=== PATIENT | female | born 1985 | race African-American/Black ===

== ENCOUNTER 2018-10-17 23:05 | Outpatient (CLI) | payer MEDICAID ==
[2018-10-17 23:59] LABS: APPEARANCE,URINE CLOUDY; BILIRUBIN,URINE NEGATIVE (NEGATIVE); COLOR,URINE YELLOW; GLUCOSE, URINE NEGATIVE (NEGATIVE); KETONES,URINE NEGATIVE (NEGATIVE); LEUKOCYTE ESTERASE,URINE NEGATIVE (NEGATIVE); NITRITE,URINE NEGATIVE (NEGATIVE); PROTEIN,URINE NEGATIVE (NEGATIVE); URINE SPECIFIC GRAVITY 1.018; UROBILINOGEN,URINE NEGATIVE mg/dL (<2.0)
[2018-10-18 00:11] LABS: URINE AMPHETAMINES SCREEN NEGATIVE; URINE BARBITURATES SCREEN NEGATIVE; URINE BENZODIAZEPINES SCREEN NEGATIVE; URINE COCAINE SCREEN NEGATIVE; URINE MARIJUANA (THC) SCREEN NEGATIVE; URINE METHADONE SCREEN NEGATIVE; URINE PHENCYCLIDINE SCREEN NEGATIVE
== END 2018-10-18 00:41 | disposition home or self-care (01) ==
LOC: LC 23:05
PROVIDERS: ATTEND Obstetrics & Gynecology Gynecology
DX: O36.8390 Maternal care for abnormalities of the fetal heart rate or rhythm, unspecified trimester, not applicable or unspecified (principal); Z87.891 Personal history of nicotine dependence
CPT/HCPCS: 80307; 81001

== ENCOUNTER 2019-01-04 00:19 | Outpatient (CLI) | payer MEDICAID ==
[2019-01-04 01:09] LABS: APPEARANCE,URINE CLOUDY; BILIRUBIN,URINE NEGATIVE (NEGATIVE); COLOR,URINE YELLOW; GLUCOSE, URINE NEGATIVE (NEGATIVE); KETONES,URINE NEGATIVE (NEGATIVE); LEUKOCYTE ESTERASE,URINE NEGATIVE (NEGATIVE); NITRITE,URINE NEGATIVE (NEGATIVE); PROTEIN,URINE 30 mg/dL (NEGATIVE); URINE SPECIFIC GRAVITY 1.029; UROBILINOGEN,URINE NEGATIVE mg/dL (<2.0)
[2019-01-04 01:32] LABS: URINE AMPHETAMINES SCREEN NEGATIVE; URINE BARBITURATES SCREEN NEGATIVE; URINE BENZODIAZEPINES SCREEN NEGATIVE; URINE COCAINE SCREEN NEGATIVE; URINE MARIJUANA (THC) SCREEN NEGATIVE; URINE METHADONE SCREEN NEGATIVE; URINE PHENCYCLIDINE SCREEN NEGATIVE
[2019-01-04] MEDS ORDERED: RINGERS SOLUTION,LACTATED 1,000 ML IV PRN (01:51)
--- NOTE | 2019-01-04 03:51 | Non Stress Test Report ---
Non Stress Test Datetime Report Generated by CPN: 01/04/2019 03:50 DEMOGRAPHIC EGA NST: 39.3 INDICATION Indication for Study: Ordered by Provider Indication for Study (NST) Other: LC URINE RESULTS Urine Protein, NST: Negative Urine Ketones - NST: Negative Urine Glucose - NST: Negative Urine Blood - NST: Positive MONITORING Monitor Explained: Monitor Explained; Test Explained; Patient Verbalized Understanding Time on Monitor: 01/04/2019 02:30 Time off Monitor: 01/04/2019 03:22 NST Duration: 52 NST INTERVENTIONS NST Interventions: PO Hydration; IV Fluids Physician Notified NST: Toribio BABY A: [id number] BABY A Movement : Present Contraction Frequency : 3-10 FHR Baseline : 135 Accelerations : 15X15 Decelerations : None Variability : Moderate 6-25bpm NST Review: Meets Criteria for Reactive NST NST Review and Verified By : Michele Whitaker RN NST Results: Reactive NST REPORT Report Trigger: Send Report
== END 2019-01-04 03:22 | disposition home or self-care (01) ==
LOC: LC 00:19
PROVIDERS: ATTEND Obstetrics & Gynecology
PROC: 4A1HXCZ Monitoring of Products of Conception, Cardiac Rate, External Approach (ICD-10-PCS; principal; 2019-01-04)
DX: O47.1 False labor at or after 37 completed weeks of gestation (principal); Z3A.39 39 weeks gestation of pregnancy
CPT/HCPCS: 59025; 80307; 81005; 84112

== ENCOUNTER 2019-01-14 06:33 | Inpatient (IN) | payer MEDICAID ==
[2019-01-14] MEDS ORDERED: PENICILLIN G-K 5 MILLION UNIT VIAL ONE ×3 (07:16→15:27)
[2019-01-14] MEDS ORDERED: OXYTOCIN/NORMAL SALINE 20 UNIT/1,000 ML RTUINJ ONE (07:16)
[2019-01-14] MEDS ORDERED: OXYTOCIN 10 UNIT/ML VIAL ONE (07:16)
[2019-01-14] MEDS ORDERED: LIDOCAINE 1% INJ-PF (10 MG/ML) 30 ML SDV ONE (07:16)
[2019-01-14] MEDS ORDERED: MISOPROSTOL 0.2 MG TABLET ONE (07:16)
[2019-01-14] MEDS ORDERED: RINGERS SOLUTION,LACTATED 300 ML IV ONE (07:25)
[2019-01-14] MEDS ORDERED: OXYTOCIN/NORMAL SALINE 20 UNIT/1,000 ML RTUINJ IV PRN ×2 (07:25→16:06)
[2019-01-14] MEDS ORDERED: PENICILLIN G POTASSIUM 5,000,000 UNIT in DEXTROSE 5%-WATER 100 ML IV ONE (07:30)
[2019-01-14 07:41] LABS: APPEARANCE,URINE CLEAR; BILIRUBIN,URINE NEGATIVE (NEGATIVE); COLOR,URINE YELLOW; GLUCOSE, URINE NEGATIVE (NEGATIVE); KETONES,URINE NEGATIVE (NEGATIVE); LEUKOCYTE ESTERASE,URINE NEGATIVE (NEGATIVE); NITRITE,URINE NEGATIVE (NEGATIVE); PROTEIN,URINE NEGATIVE (NEGATIVE); URINE SPECIFIC GRAVITY 1.018; UROBILINOGEN,URINE NEGATIVE mg/dL (<2.0)
[2019-01-14] MEDS: RINGERS SOLUTION,LACTATED 1,000 ML IV PRN ×2 (08:00→12:32)
[2019-01-14 08:02] LABS: ABSOLUTE BASOPHILS # (AUTO) 0.1 10^3/uL (0.0-0.2); ABSOLUTE EOSINOPHILS # (AUTO) 0.1 10^3/uL (0.0-0.6); ABSOLUTE LYMPHOCYTES (AUTO) 1.5 10^3/uL (0.5-4.7); ABSOLUTE MONOCYTES (AUTO) 0.5 10^3/uL (0.1-1.4); EOSINOPHILS % (AUTO) 1.2 % (0-6); HEMATOCRIT 32.6 % (36.0-47.0); HEMOGLOBIN 10.7 g/dL (12.0-15.5); MEAN CORPUSCULAR HEMOGLOBIN 25.7 pg (27.0-33.4); MEAN CORPUSCULAR HGB CONC 32.7 g/dL (32.0-36.0); MEAN CORPUSCULAR VOLUME 79 fl (80-97); MONOCYTES % (AUTO) 8.2 % (3-13); PLATELET COUNT 343 10^3/uL (150-450); RED BLOOD COUNT 4.15 10^6/uL (3.72-5.28); RED CELL DISTRIBUTION WIDTH 16.8 % (11.5-14.0); SEGMENTED NEUTROPHILS % (AUTO) 64.6 % (42-78); TOTAL CELLS COUNTED % (AUTO) 100 %; WHITE BLOOD COUNT 6.2 10^3/uL (4.0-10.5)
[2019-01-14 08:08] LABS: URINE AMPHETAMINES SCREEN NEGATIVE; URINE BARBITURATES SCREEN NEGATIVE; URINE BENZODIAZEPINES SCREEN NEGATIVE; URINE COCAINE SCREEN NEGATIVE; URINE MARIJUANA (THC) SCREEN NEGATIVE; URINE METHADONE SCREEN NEGATIVE; URINE PHENCYCLIDINE SCREEN NEGATIVE
[2019-01-14] MEDS ORDERED: CITRIC ACID/SODIUM CITRATE ORAL SOLN 15 ML UDCUP ONE (09:34)
[2019-01-14] MEDS ORDERED: CITRIC ACID/SODIUM CITRATE ORAL SOLN 15 ML UDCUP PO PRN (09:34)
--- NOTE | 2019-01-14 09:42 | Admission Physical ---
Datetime Report Generated by CPN: 01/14/2019 09:42 CURRENT ADMISSION Chief Complaint: Scheduled Induction of Labor Indication for Induction: Post Dates Admit Impression : Term, Intrauterine Admit Plan: Admit to Unit; Initiate Labor Induction Protocol ALLERGIES Medication Allergies: No Medication Allergies: No Known Allergies (01/04/2019) Latex: No Latex Allergies Food Allergies: No known allergies Environmental Allergies: Elm trees, bermuda grass OBSTETRICAL HISTORY EDC: 01/08/2019 00:00 : 6 Para: 3 SAB: 2 Livin Cesareans: 0 Gestational Diabetes: No Rh Sensitization: No Incompetent Cervix: No KALEIGH: No Infertility: No ART Treatment: No Uterine Anomaly: No IUGR: No Hx Previous C/S: No Macrosomia: No Hx Loss/Stillborn: No PIH: No Hx : No Placenta Previa/Abruption: No Depression/PP Depression: Yes PTL/PROM: No Post Hemorrhage: No Obstetrical History Comments: G1 07/2004 @ 41 weeks, Baby girl 8lbs 0oz, epidural G2 - 04/2006 SAB @ 7 weeks G3 - 07/2009 @ 41 weeks, Baby boy 7lbs 8oz, epidural G4 - 02/2011 SAB @ 7 weeks G5 - 12/2015 5lbs 10oz, Baby girl, epidural G6 - Current SEE RECORDS Alcohol: No Marijuana : No Cocaine: No Other Illicit Drugs: No Cigarettes: Former Smoker. [id number] MEDICAL HISTORY Diabetes: No Blood Transfusion: No Pulmonary Disease (Asthma, TB): No Breast Disease: No Hypertension: No Procurement Internship Surgery: No Heart Disease: No Hosp/Surgery: Yes Autoimmune Disorder: No Anesthetic Complications: No Kidney Disease: No Abnormal Pap Smear: Yes Neuro/Epilepsy: No Psychiatric Disorders: No Other Medical Diseases: No Hepatitis/Liver Disease: No Significant Family History: No Varicosities/Phlebitis: No Trauma/Violence : No Thyroid Dysfunction: No Medical History Comments: Chlamydia - 06/09/15, 06/18/15, childbirth, abd pap 2010, obesity, vitamin D deficiency INFECTIOUS HISTORY Gonorrhea: No Genital Herpes: No Chlamydia: Yes Tuberculosis: No Syphilis: No Hepatitis: No HIV/AIDS Exposure: No Rash or Viral Illness: No HPV: No PHYSICAL EXAM General: Normal HEENT: Normal Neurologic: Normal Thyroid: Deferred Heart: Normal Lungs: Normal Breast: Deferred Back: Normal Abdomen: Normal Genitourinary Exam: Normal Extremities: Normal DTRs: Deferred Pelvic Type: Adequate Physical Exam Comments: pelvis proven to 8#3 Vital Signs: Reviewed; Within Normal Limits VAGINAL EXAM Dilatation: 3 Effacement: 50 Station: -2 Contraction Comments: irreg MEMBRANES Membranes: Ruptured Amniotic Fluid Color: Clear FETUS A EGA: 40.6 Monitoring: External US FHR- Baseline: 145 Variability: Moderate 6-25bpm Accelerations: 15X15 Decelerations: None Estimated Weight (gm): 3600 Presentation: Vertex Presentation- Other: by SVE Admit Comment: at 40w6d by 17w sono. complications: late to care, obesity, GBS pos. P: comgt with dr johnson. AROM at 0930 for clear fluid, pitocin infusing, GBS prophylaxis with penicillin, anticipate PLANS FOR LABOR AND DELIVERY Labor and Delivery: None Pain Management: Epidural Feeding Preference: Formula Benefit of Breast Feed Discussed: Yes Circumcision: Yes INFORMED CONSENT Assignment: Kody Johnson MD Signature: with User ID: [email or web address] : with User ID: [email or web address]
[2019-01-14] MEDS ORDERED: EPHEDRINE SULFATE INJ 50 MG/1 ML AMPULE ONE (12:18)
[2019-01-14] MEDS ORDERED: FENTANYL/BUPIVACAINE/NS/PF 300 MCG/150 ML RTUINJ EPI ONE (12:19)
[2019-01-14] MEDS ORDERED: BUPIVACAINE HCL 0.25 % INJ/PF (2.5 MG/1 ML) 30 ML VIAL ONE (12:19)
[2019-01-14] MEDS ORDERED: LIDOCAINE 2% INJ-PF (20 MG/ML) 10 ML AMPUL ONE (15:23)
[2019-01-14] MEDS: PENICILLIN G POTASSIUM 2,500,000 UNIT in DEXTROSE 5%-WATER 50 ML IV SCH ×3 (15:32→21:02)
[2019-01-14] MEDS ORDERED: ACETAMINOPHEN 650 MG SUPP.RECT PR PRN (16:06)
[2019-01-14] MEDS ORDERED: PROMETHAZINE HCL 25 MG SUPP.RECT PR PRN (16:06)
[2019-01-14] MEDS ORDERED: BENZOCAINE/MENTHOL AEROSOL SPRAY 56 ML TOP PRN (16:06)
[2019-01-14] MEDS ORDERED: DIBUCAINE 1% OINTMENT 56 GM TP PRN (16:06)
[2019-01-14] MEDS ORDERED: GLYCERIN/WITCH HAZEL LEAF 1 EACH MED..WIPE TP PRN (16:06)
[2019-01-14] MEDS ORDERED: PROMETHAZINE HCL 25 MG TABLET PO PRN (16:06)
[2019-01-14] MEDS ORDERED: DIPH/PERTUSS(ACELL)/TETANUS VAC/PF 0.5 ML SYR (>=10YO) IM PRN (16:06)
[2019-01-14] MEDS ORDERED: ZOLPIDEM TARTRATE 5 MG TABLET PO PRN (16:06)
[2019-01-14] MEDS ORDERED: MAGNESIUM HYDROXIDE SUSP 30 ML UDCUP PO PRN (16:06)
[2019-01-14] MEDS ORDERED: PSEUDOEPHEDRINE HCL 30 MG TABLET PO PRN (16:06)
[2019-01-14] MEDS ORDERED: NA PHOS,M-B/NA PHOS,DI-BA (ADULT) 133 ML ENEMA PR PRN (16:06)
[2019-01-14] MEDS ORDERED: ACETAMINOPHEN WITH CODEINE #3 TABLET PO PRN ×2 (16:06)
[2019-01-14] MEDS ORDERED: MEASLES,MUMPS&RUBELLA VACC/PF 0.5 ML VIAL SUBCUT PRN (16:06)
[2019-01-14] MEDS ORDERED: PROMETHAZINE HCL INJ 25 MG/1 ML VIAL IV PRN (16:06)
[2019-01-14] MEDS ORDERED: DIPHENHYDRAMINE HCL 25 MG CAPSULE PO PRN (16:06)
[2019-01-14] MEDS ORDERED: IBUPROFEN 800 MG TABLET PO SCH (16:15)
--- NOTE | 2019-01-14 17:28 | Delivery Summary ---
Del Sum A-C Datetime Report Generated by CPN: 01/14/2019 17:28 DELIVERY PERSONNEL DELIVERY PERSONNEL: [id number] Delivery Doctor:: Sharon Schrader CNM Labor and Delivery Nurse:: Ailyn Pierce RNradio artist Nurse:: Jigna Buchanan RN Nursery Nurse:: Mis Ortega RN Nursery Nurse:: Maki Oconnor RN Perforator/SENIOR OFFICER: Yuliya Alford CNA II Perforator/SENIOR OFFICER: Yanet Orona, DIRECTOR OF OPERATIONS SUPPORT Additional Personnel: : Brayden GUARDADO, ST MATERNAL INFORMATION Delivery Anesthesia: Epidural Medications After Delivery: Pitocin Bolus-Please Comment Meds After Delivery Comment: Pitocin 20 units in L NS bolusing per order Delivery QBL: 100 Maternal Complications: None Provider Comments: ANASTASIA VIABLE MALE INFANT WITH SPONTANEOUS CRY. CORD DOUBLE CLAMPED AND CUT. SPONTANEOUS INTACT PLACENTA WITH 3VC. NO LACERATIONS. MOTHER AND STABLE IN L_D#4. (Annotations: Data stored by N on behalf of user) LABOR SUMMARY EDC: 01/08/2019 00:00 No. Babies in Womb: 1 Attempted: No Labor Anesthesia: Epidural LABOR INFORMATION Reason for Induction: Post Dates Onset of Labor: 01/14/2019 11:00 Complete Dilatation: 01/14/2019 15:46 Oxytocin: Induction Group B Beta Strep: positive Antibiotics # of Doses: 3 Antibiotics Time of Last Dose: 1531 Name of Antibiotic Given: PCN Steroids Given: None Reason Steroids Not Administered: Not Applicable MEMBRANES Membranes Rupture Method: Artificial Rupture of Membranes: 01/14/2019 09:30 Length of Rupture (hr): 6.33 Amniotic Fluid Color: Clear Amniotic Fluid Amount: Small Amniotic Fluid Odor: Normal STAGES OF LABOR Stage 1 hr: 4 Stage 1 min: 46 Stage 2 hr: 0 Stage 2 min: 4 Stage 3 hr: 0 Stage 3 min: 7 Total Time in Labor hr: 4 Total Time in Labor min: 57 VAGINAL DELIVERY Episiotomy: None Laceration #1: None Laceration Extension #1: N/A Laceration Repair: Not Applicable Sponge Count Correct: N/A Sharps Count Correct: N/A BABY A INFORMATION Delivery Date/Time: 01/14/2019 15:50 Method of Delivery: Vaginal Born in Route : No : N/A Forceps: N/A Vacuum Extraction: N/A Shoulder Dystocia : No PRESENTATION/POSITION BABY A Presentation: Cephalic Cephalic Presentation: Vertex Vertex Position: Right Occipital Anterior Breech Presentation: N/A PLACENTA INFORMATION BABY A Placenta Delivery Time : 01/14/2019 15:57 Placenta Method of Delivery: Spontaneous Placenta Status: Delivered SCORES BABY A Heart Rate 1 min: >100 bpm Resp Effort 1 min: Good Cry Reflex Irritability 1 min: Cough or Sneeze or Pulls Away Muscle Tone 1 min: Active Motion Color 1 min: Blue/Pale Resuscitation Effort 1 min: Tactile Stimulation SCORE 1 MIN: 8 Heart Rate 5 min: >100 bpm Resp Effort 5 min: Good Cry Reflex Irritability 5 min: Cough or Sneeze or Pulls Away Muscle Tone 5 min: Active Motion Color 5 min: Body Woden, Extremities Blue Resuscitation Effort 5 min: Tactile Stimulation SCORE 5 MIN: 9 INFORMATION BABY A Gestational Age at Delivery: 40.6 Gestational Status: Full Term- 39- 40.6 Weeks Infant Outcome : Liveborn Condition : Stable Sex: Male IDENTIFICATION BABY A Infant Verification Date/Time: 01/14/2019 16:03 ID Band Number: [id number] Mother's Name Verified: Yes RN Verifying : Izabella Pierce, RN, LCherelle Oconnor, RN WEIGHT/LENGTH BABY A Birthweight (gm): 3390 Infant Weight (lb): 7 Infant Weight (oz): 8 Infant Length (in): 20.25 Infant Length (cm): 51.44 CORD INFORMATION BABY A No. Cord Vessels: 3 Nuchal Cord : N/A Cord Blood Taken: Yes-For Eval (Mom's Blood Type - or O+) Suction: None ASSESSMENT BABY A Infant Complications: Multiple Late Decels; Multiple Variable Decels Physical Findings at Delivery: Within Normal Limits Infant Respirations: Appears Normal Skin to Skin: Yes Skin to Skin Time (min): 60 Pipelaying Fitter/ALS Called : No Care By: Huey ORTEGA RN/ Pasquale OCONNOR RN Transferred To: Remains with Mother BABY B INFORMATION : N/A SIGNATURES : I was personally available for consultation and serving as supervising physician for the MLP.
[2019-01-14] MEDS: DOCUSATE SODIUM 100 MG CAPSULE PO SCH (18:30)
[2019-01-14] MEDS: FERROUS SULFATE 325 MG TABLET PO SCH (18:30)
[2019-01-14] MEDS: FAMOTIDINE 20 MG TABLET PO SCH (21:06)
[2019-01-14] MEDS: IBUPROFEN 800 MG TABLET PO SCH (21:06)
[2019-01-15] MEDS: IBUPROFEN 800 MG TABLET PO SCH ×3 (05:13→21:15)
[2019-01-15 07:01] LABS: ABSOLUTE BASOPHILS # (AUTO) 0.1 10^3/uL (0.0-0.2); ABSOLUTE EOSINOPHILS # (AUTO) 0.1 10^3/uL (0.0-0.6); ABSOLUTE NEUT (AUTO) 7.5 10^3/uL (1.7-8.2); BASOPHILS % (AUTO) 0.6 % (0-2); EOSINOPHILS % (AUTO) 0.5 % (0-6); HEMATOCRIT 31.3 % (36.0-47.0); HEMOGLOBIN 10.1 g/dL (12.0-15.5); LYMPHOCYTES % (AUTO) 18.8 % (13-45); MEAN CORPUSCULAR HEMOGLOBIN 25.8 pg (27.0-33.4); MEAN CORPUSCULAR HGB CONC 32.2 g/dL (32.0-36.0); MEAN CORPUSCULAR VOLUME 80 fl (80-97); MONOCYTES % (AUTO) 9.8 % (3-13); PLATELET COUNT 296 10^3/uL (150-450); RED BLOOD COUNT 3.92 10^6/uL (3.72-5.28); SEGMENTED NEUTROPHILS % (AUTO) 70.3 % (42-78); TOTAL CELLS COUNTED % (AUTO) 100 %; WHITE BLOOD COUNT 10.7 10^3/uL (4.0-10.5)
[2019-01-15 09:03] VITALS: BP 105/76
--- NOTE | 2019-01-15 09:22 | PDOC PROGRESS REPORT ---
Subjective-OB Progress Note for:: 01/15/19 Subjective: Doing well, holding baby, bottle feeding, voiding, diet taken well Physical Exam (OB) Vital Signs: Temp Pulse Resp BP Pulse Ox 98.0 F 75 16 105/76 100 01/15/19 09:02 01/15/19 09:02 01/15/19 09:02 01/15/19 09:02 01/15/19 09:02 Intake & Output 01/14/19 01/15/19 01/16/19 06:59 06:59 06:59 Intake Total 967 Balance 967 Weight 122.3 kg - PIH/Pre-Eclampsia DTR's: 2 + Clonus: Negative Headache: Absent Epigastric Pain: No Visual Changes: No - Lochia Lochia Amount: Small 10-25 ml Lochia Color: Rubra/Red - Abdomen Description: Soft Hernia Present: No Fundal Description: Firm, Midline Fundal Height: u/u - u/2 Objective-Diagnostic Laboratory: 01/15/19 06:20 01/15/19 06:20 WBC 10.7 H RBC 3.92 Hgb 10.1 L Hct 31.3 L MCV 80 MCH 25.8 L MCHC 32.2 RDW 17.0 H Plt Count 296 Seg Neutrophils % 70.3 Lymphocytes % 18.8 Monocytes % 9.8 Eosinophils % 0.5 Basophils % 0.6 Absolute Neutrophils 7.5 Absolute Lymphocytes 2.0 Absolute Monocytes 1.0 Absolute Eosinophils 0.1 Absolute Basophils 0.1 Assessment and Plan(PN) - Assessment and Plan (1) Vaginal delivery Is this a current diagnosis for this admission?: Yes (2) Encounter for induction of labor Is this a current diagnosis for this admission?: Yes (3) Group B streptococcal carriage complicating Is this a current diagnosis for this admission?: Yes (4) Obesity affecting Qualifiers: Trimester: first trimester Qualified Code(s): O99.211 - Obesity complicating , first trimester Is this a current diagnosis for this admission?: Yes - Time Spent with Patient Time with patient: Less than 15 minutes Medications reviewed and adjusted accordingly: Yes
[2019-01-15] MEDS: SENNOSIDES/DOCUSATE 8.6-50 MG 1 EACH TABLET PO SCH (10:53)
[2019-01-15] MEDS: PRENATAL VITAMIN W DHA CAPSULE PO SCH (10:53)
[2019-01-15] MEDS: DOCUSATE SODIUM 100 MG CAPSULE PO SCH ×2 (10:53→17:20)
[2019-01-15] MEDS: FERROUS SULFATE 325 MG TABLET PO SCH ×2 (10:53→17:20)
[2019-01-15] MEDS: FAMOTIDINE 20 MG TABLET PO SCH ×2 (10:53→21:15)
[2019-01-16] MEDS: FERROUS SULFATE 325 MG TABLET PO SCH (09:35)
[2019-01-16] MEDS: DOCUSATE SODIUM 100 MG CAPSULE PO SCH (09:35)
[2019-01-16] MEDS: FAMOTIDINE 20 MG TABLET PO SCH (09:35)
[2019-01-16] MEDS: PRENATAL VITAMIN W DHA CAPSULE PO SCH (09:35)
[2019-01-16] MEDS: SENNOSIDES/DOCUSATE 8.6-50 MG 1 EACH TABLET PO SCH (09:35)
--- NOTE | 2019-01-16 09:48 | PDOC DISCHARGE SUMMARY ---
Final Diagnosis Discharge Date: 01/16/19 - PP Day #2, doing well, O+, bottlefeeding - Final Diagnosis (1) Normal course Is this a current diagnosis for this admission?: Yes (2) Encounter for induction of labor Is this a current diagnosis for this admission?: Yes (3) Group B streptococcal carriage complicating Is this a current diagnosis for this admission?: Yes (4) Obesity affecting Is this a current diagnosis for this admission?: Yes (5) Vaginal delivery Is this a current diagnosis for this admission?: Yes Discharge Data - Discharge Medication Prescriptions: Ibuprofen [Motrin 800 mg Tablet] 800 mg PO Q8 #60 tablet Home Medications: Ibuprofen [Motrin 800 mg Tablet] 800 mg PO Q8 #60 tablet 01/16/19 Reason(s) for Admission: Induction of Labor Procedures: Ultrasound Intrapartum Procedure(s): Spontaneous Vaginal Delivery - Diagnosis Test Laboratory: Temp Pulse Resp BP Pulse Ox 98.0 F 75 16 105/76 100 01/15/19 09:02 01/15/19 09:02 01/15/19 09:02 01/15/19 09:02 01/15/19 09:02 01/14/19 01/14/19 01/15/19 06:46 07:43 06:20 RBC 4.15 3.92 Hgb 10.7 L 10.1 L Hct 32.6 L 31.3 L Urine Opiates Screen NEGATIVE - Discharge information/Instructions Discharge Activity: Activity As Tolerated, No Lifting Over 10 Pounds, Pelvic Rest Discharge Diet: As Tolerated, Regular Disposition: HOME, SELF-CARE Follow up with: [facility] in: 4, Weeks
== END 2019-01-16 12:10 | disposition home or self-care (01) | DRG 807 ==
LOC: LR 06:33 → 2S 18:25
PROVIDERS: ADMIT Obstetrics & Gynecology; ATTEND Obstetrics & Gynecology
PROC: 10E0XZZ Delivery of Products of Conception, External Approach (ICD-10-PCS; principal; 2019-01-14)
PROC: 10907ZC Drainage of Amniotic Fluid, Therapeutic from Products of Conception, Via Natural or Artificial Opening (ICD-10-PCS; 2019-01-14)
DX: O48.0 Post-term pregnancy (principal); Z37.0 Single live birth; O99.824 Streptococcus B carrier state complicating childbirth; O99.214 Obesity complicating childbirth; E66.9 Obesity, unspecified; Z87.891 Personal history of nicotine dependence; Z86.19 Personal history of other infectious and parasitic diseases; Z3A.40 40 weeks gestation of pregnancy
CPT/HCPCS: 36415; 80307; 81005; 85025; 86592; 86850; 86900; 86901; J2540; J2590; J3010; J3490

== ENCOUNTER 2020-06-22 10:44 | Emergency (ER) | payer MEDICAID ==
--- NOTE | 2020-06-22 11:16 | ER Document Report ---
ED Headache - General Chief Complaint: Headache Stated Complaint: HEADACHE Time Seen by Provider: 06/22/20 10:52 Primary Care Provider: [facility] [Provider Group] - Follow up as needed TRAVEL OUTSIDE OF THE [place] IN LAST 30 DAYS: No - HPI Notes: 34-year-old female presents to ED for evaluation of increasing headache with light and sound sensitivity since Sunday. Patient reports that she has had nausea and difficulties concentrating. Reports that it feels like her vision gets blurred. She denies any cough or cold symptoms. Denies diarrhea or vomiting. Patient states that she has had something like this happen to her almost 10 years ago. Reports that she does not take any medications for similar complaints on a regular basis. Patient denies dizziness. Denies trauma or head injury. Patient reports she had no loss of consciousness. She endorses no neck pain. Denies any difficulties with ambulation. Patient has no paresthesias. Patient states that she feels as though she has pressure behind her eyes that radiates forward. Patient states she has not seen a neurologist for this. Patient reports headache came on gradually. Denies that this is the worst headache of their life. Patient has taken OTCs relief of symptoms. - Related Data Allergies/Adverse Reactions: No Known Allergies Allergy (Verified 06/22/20 10:56) Past Medical History - Social History Smoking Status: Former Smoker Frequency of alcohol use: None Drug Abuse: None Family History: CVA, Hypertension Patient has homicidal ideation: No Neurological Medical History: Reports: Hx Migraine - Immunizations Immunizations up to date: Yes Hx Diphtheria, Pertussis, Tetanus Vaccination: Yes Review of Systems - Review of Systems Notes: REVIEW OF SYSTEMS: CONSTITUTIONAL : Denies fever, chills, or sweats. Denies recent illness. EENT: Denies eye, ear, throat, or mouth pain or symptoms. Denies nasal or sinus congestion. CARDIOVASCULAR: Denies chest pain. RESPIRATORY: Denies cough, cold, or chest congestion. Denies shortness of breath, difficulty breathing, or wheezing. GASTROINTESTINAL: Denies abdominal pain. Denies nausea, vomiting, or diarrhea. Denies constipation. Last BM: GENITOURINARY: Denies difficulty urinating, painful urination, burning, frequency, or blood in urine. FEMALE GENITOURINARY: Denies vaginal bleeding, abnormal or irregular periods. LMP: MUSCULOSKELETAL: Denies neck or back pain or joint pain or swelling. SKIN: Denies rash or skin lesions. HEMATOLOGIC : Denies easy bruising or bleeding. LYMPHATIC: Denies swollen, enlarged glands. NEUROLOGICAL: Denies altered mental status or loss of consciousness. + headache. Denies weakness or paralysis or loss of use of either side. Denies problems with gait or speech. Denies sensory or motor loss. PSYCHIATRIC: Denies anxiety or stress or depression. ALL OTHER SYSTEMS REVIEWED AND NEGATIVE. Physical Exam - Vital signs Vitals: Temp Pulse Resp BP Pulse Ox 98.1 F 81 20 149/87 H 98 06/22/20 10:51 06/22/20 10:51 06/22/20 10:51 06/22/20 10:51 06/22/20 10:51 General: No acute distress. Alert and oriented x3. Sitting comfortably in a stretcher. Skin: No jaundice, pallor, or erythema. Warm and dry. HEENT: No evidence of contusion or gamboa signs. No evidence of racoon eyes. Pupils are equal round reactive to light and accommodation. Extraocular movements are intact. TMs without erythema or bulging. No hemotympanum bilaterally. Canals are clear. Nares patent without any discharge. Teeth in good condition. Pharynx without erythema, edema, or exudates. No tonsillar enlargement. Uvula is midline. Airway is patent. Neck: Supple and nontender, with no lymphadenopathy. No cervical spinal tenderness. Full range of motion. Heart: Regular rate and rhythm. S1,S2. No murmurs, rubs, or gallops. Lungs: Clear to ausculation bilaterally. No wheezes, rhonchi, rales. Equal chest expansion. No retractions. Abdomen: Soft, nontender to palpation, nondistended. Positive bowel sounds in all 4 quadrants. No masses. No CVA tenderness bilaterally. Back: No midline spinal TTP. Full range of motion. Neuro: Cranial nerves II-XII are intact. GCS 15. Moving all extremities without discomfort. Strength 5+ in all extremities. Sensation intact x4. No pronator drift. [id number] deficits. coordination intact x4. Negative Romberg. Gait steady. Deep tendon reflexes 2+ upper and lower extremities bilaterally. Radial and pedal pulses 2+ bilaterally. Psych: Mood and affect appropriate. Course - Re-evaluation Re-evalutation: 06/22/20 14:05 34-year-old patient presents to ED for evaluation of headache for the last 7 days. Physical exam is negative for focal neurological deficits. Patient has a history of headaches and states that this headache fits regular distribution. Patient evaluated with of the head/brain which was negative for hemorrhage, masses, or midline shift. CBC and CMP unremarkable for signs of infection or electrolyte abnormalities. Patient ad vised of the findings. Pain treated symptomatically at this time with tordol, Benadryl, reglan IV fluids, and decadron with good improvement in symptoms. Patient continued on the same medications for outpatient management. Patient instructed to follow-up with PCP as well as neurology in the next 2-3 days. Patient understands indications to return to the ER. Patient is agreeable with this plan. - Vital Signs Vital signs: Temp Pulse Resp BP Pulse Ox 98.3 F 80 17 137/82 H 98 06/22/20 16:42 06/22/20 16:42 06/22/20 16:42 06/22/20 16:42 06/22/20 16:42 - Laboratory Results Result Diagrams: 06/22/20 11:35 06/22/20 11:35 Laboratory Results Interpreted: 06/22/20 06/22/20 06/22/20 11:35 11:35 13:25 RDW 14.9 H Chloride 109 H Calcium 10.8 H Urine Ascorbic Acid 40 H Critical Laboratory Results Reviewed: No Critical Results - Radiology Results Critical Radiology Results Reviewed: No Critical Results Discharge - Discharge Clinical Impression: Acute headache Qualifiers: Headache type: unspecified Intractability: intractable Qualified Code(s): R51.9 - Headache, unspecified Condition: Stable Disposition: HOME, SELF-CARE Instructions: Antinausea Medication ([facility]), Headache ([facility]) Prescriptions: Ondansetron [Zofran Odt 4 mg Tablet] 4 mg PO Q4HP PRN #30 tab.rapdis PRN Reason: Prednisone [Deltasone 20 mg Tablet] 20 mg PO DAILY #5 tablet Ketorolac Tromethamine [Toradol 10 mg Tablet] 10 mg PO TID #15 tablet Referrals: [facility] [Provider Group] - Follow up as needed
[2020-06-22] MEDS ORDERED: NORMAL SALINE 1000 ML 1,000 ML IV ONE (11:17)
[2020-06-22] MEDS ORDERED: METOCLOPRAMIDE HCL INJ/PF 10 MG/2 ML SDV IV ONE (11:17)
[2020-06-22] MEDS ORDERED: KETOROLAC TROMETHAMINE INJ/PF 30 MG/1 ML SDV IV ONE (11:17)
[2020-06-22] MEDS ORDERED: DIPHENHYDRAMINE HCL 50 MG/ML VIAL IV ONE (11:17)
[2020-06-22 11:50] LABS: ABSOLUTE BASOPHILS # (AUTO) 0.1 10^3/uL (0.0-0.2); ABSOLUTE EOSINOPHILS # (AUTO) 0.1 10^3/uL (0.0-0.6); ABSOLUTE LYMPHOCYTES (AUTO) 2.1 10^3/uL (0.5-4.7); ABSOLUTE MONOCYTES (AUTO) 0.4 10^3/uL (0.1-1.4); ABSOLUTE NEUT (AUTO) 3.6 10^3/uL (1.7-8.2); BASOPHILS % (AUTO) 1.3 % (0-2); EOSINOPHILS % (AUTO) 1.5 % (0-6); HEMATOCRIT 41.4 % (36.0-47.0); HEMOGLOBIN 13.5 g/dL (12.0-15.5); LYMPHOCYTES % (AUTO) 33.5 % (13-45); MEAN CORPUSCULAR HEMOGLOBIN 27.1 pg (27.0-33.4); MEAN CORPUSCULAR HGB CONC 32.6 g/dL (32.0-36.0); MEAN CORPUSCULAR VOLUME 83 fl (80-97); MONOCYTES % (AUTO) 6.3 % (3-13); PLATELET COUNT 329 10^3/uL (150-450); RED BLOOD COUNT 4.97 10^6/uL (3.72-5.28); RED CELL DISTRIBUTION WIDTH 14.9 % (11.5-14.0); SEGMENTED NEUTROPHILS % (AUTO) 57.4 % (42-78); TOTAL CELLS COUNTED % (AUTO) 100 %; WHITE BLOOD COUNT 6.3 10^3/uL (4.0-10.5)
[2020-06-22 12:08] LABS: ALBUMIN 4.5 g/dL (3.5-5.0); ALKALINE PHOSPHATASE 88 U/L (38-126); ANION GAP 9 (5-19); ASPARTATE AMINO TRANSFERASE 33 U/L (14-36); BILIRUBIN,DIRECT 0.1 mg/dL (0.0-0.4); BILIRUBIN,TOTAL 0.7 mg/dL (0.2-1.3); BLOOD UREA NITROGEN 12 mg/dL (7-20); CALCIUM 10.8 mg/dL (8.4-10.2); CARBON DIOXIDE 25 mmol/L (22-30); CHLORIDE 109 mmol/L (98-107); GLUCOSE 97 mg/dL (75-110); POTASSIUM 4.3 mmol/L (3.6-5.0); TOTAL PROTEIN 7.7 g/dL (6.3-8.2)
--- NOTE | 2020-06-22 12:18 | RADIOLOGY REPORT (SQ) ---
EXAM DESCRIPTION: CT HEAD WITHOUT IMAGES COMPLETED DATE/TIME: 06/22/2020 11:49 am REASON FOR STUDY: headache COMPARISON: None. TECHNIQUE: Axial images acquired through the brain without intravenous contrast. Images reviewed wi th bone, brain and subdural windows. Additional sagittal and coronal reconstructions were generated. Images stored on PACS. All CT scanners at this facility use dose modulation, iterative reconstruction, and/or weight based d osing when appropriate to reduce radiation dose to as low as reasonably achievable (ALARA). [facility]: Dose Right [facility]: CareDose [facility]: Dose Right [facility]: Teradose 4D [facility]: Physihome RADIATION DOSE: CT Rad equipment meets quality standard of care and radiation dose reduction techniq ues were employed. CTDIvol: 53.2 mGy. DLP: 1150 mGy-cm. mGy. LIMITATIONS: None. FINDINGS: VENTRICLES: Normal size and contour. CEREBRUM: No masses. No hemorrhage. No midline shift. No evidence for acute infarction. Normal gra y/white matter differentiation. No areas of low density in the white matter. CEREBELLUM: No masses. No hemorrhage. No alteration of density. No evidence for acute infarction. EXTRAAXIAL SPACES: No fluid collections. No masses. ORBITS AND GLOBE: No intra- or extraconal masses. Normal contour of globe without masses. CALVARIUM: No fracture. PARANASAL SINUSES: No fluid or mucosal thickening. SOFT TISSUES: No mass or hematoma. OTHER: No other significant finding. IMPRESSION: NORMAL BRAIN CT WITHOUT CONTRAST. EVIDENCE OF ACUTE STROKE: NO. COMMENT: Quality ID # [id number]: Final reports with documentation of one or more dose reduction techniques (e.g., Automated exposure control, adjustment of the mA and/or kV according to patient size, use of iterative reconstruction technique) TECHNICAL DOCUMENTATION: JOB ID: [id number] 2010 [employer]- All Rights Reserved Reading location - IP/workstation name: [email or web address]
[2020-06-22] MEDS ORDERED: DEXAMETHASONE SOD PHOS INJ 10 MG/1 ML VIAL IV ONE (13:59)
[2020-06-22 14:13] LABS: APPEARANCE,URINE CLEAR; BILIRUBIN,URINE NEGATIVE (NEGATIVE); COLOR,URINE YELLOW; GLUCOSE, URINE NEGATIVE (NEGATIVE); KETONES,URINE NEGATIVE (NEGATIVE); LEUKOCYTE ESTERASE,URINE NEGATIVE (NEGATIVE); NITRITE,URINE NEGATIVE (NEGATIVE); PROTEIN,URINE NEGATIVE (NEGATIVE); URINE SPECIFIC GRAVITY 1.024; UROBILINOGEN,URINE NEGATIVE mg/dL (<2.0)
[2020-06-22] MEDS: MAGNESIUM SULFATE/D5W 1 GM/100 ML RTUPB IV SCH ×2 (14:36→16:19)
[2020-06-22 16:43] VITALS: BP 137/82
== END 2020-06-22 16:47 | disposition home or self-care (01) ==
LOC: ER 10:44
DX: J02.9 Acute pharyngitis, unspecified (principal); R09.81 Nasal congestion; H92.03 Otalgia, bilateral; R13.10 Dysphagia, unspecified; F17.200 Nicotine dependence, unspecified, uncomplicated; Z20.828 Contact with and (suspected) exposure to other viral communicable diseases
CPT/HCPCS: 99285; 96361; 96375; 96365; 96366; 36415; 85025; 81025; 80053; 81001; 70450; J1200; J1885; J2765; J3475; J7030; J1100